=== PATIENT | female | born 1985 | race American Indian/Alaskan Native ===

== ENCOUNTER 2017-11-30 14:42 | Outpatient (CLI) | payer MEDICAID ==
[2017-11-30 15:47] LABS: Bilirubin,Urine NEG (Negative); Blood,Urine NEG (Negative); Color,Urine Red (Yellow); Protein,Urine <15 mg/dL mg/dL (Negative); Urobilinogen,Urine < 2.0 mg/dL (<2.0); WBC,Urine < 1.0 /HPF (0.0-6.0)
[2017-11-30 16:25] LABS: Hematocrit 35.9 % (30.3-42.9); Mean Corpuscular HGB Conc 33 % (30-34); Mean Corpuscular Hemoglobin 29 pg (28-32); Mean Corpuscular Volume 87 fl (79-97); Platelet Count 192 K/mm3 (140-440); Red Blood Count 4.12 M/mm3 (3.65-5.03); Red Cell Distribution Width 16.6 % (13.2-15.2)
[2017-11-30 17:37] LABS: Alanine Aminotransferase 13 units/L (7-56); Uric Acid 5.3 mg/dL (3.5-7.6)
[2017-11-30 17:40] VITALS: BP 130/77
== END 2017-11-30 18:04 | disposition home or self-care (01) ==
LOC: TRG 14:42
PROVIDERS: ATTEND Obstetrics & Gynecology
DX: O16.3 Unspecified maternal hypertension, third trimester (principal); Z3A.39 39 weeks gestation of pregnancy
CPT/HCPCS: 36415; 81001; 82565; 83615; 84450; 84460; 84550; 85027

== ENCOUNTER 2017-12-04 10:49 | Inpatient (IN) | payer MEDICAID ==
[2017-12-04] MEDS ORDERED: PEPCID IV SCH (10:53)
[2017-12-04] MEDS ORDERED: PITOCin/NS 20 UNIT/1000ML DRIP 20 UNITS/1,000 ML BAG IV SCH ×2 (11:00→16:00)
[2017-12-04] MEDS: LACTATED RINGERS 1,000 ML IV SCH ×2 (11:36→12:01)
[2017-12-04 11:52] LABS: Basophils % (Auto) 0.4 % (0.0-1.8); Eosinophils # (Auto) 0.1 K/mm3 (0.0-0.4); Eosinophils % (Auto) 1.2 % (0.0-4.3); Hematocrit 36.7 % (30.3-42.9); Hemoglobin 12.2 gm/dl (10.1-14.3); Lymphocytes # (Auto) 1.7 K/mm3 (1.2-5.4); Lymphocytes % (Auto) 14.9 % (13.4-35.0); Mean Corpuscular HGB Conc 33 % (30-34); Mean Corpuscular Hemoglobin 29 pg (28-32); Mean Corpuscular Volume 87 fl (79-97); Monocytes # (Auto) 0.8 K/mm3 (0.0-0.8); Platelet Count 202 K/mm3 (140-440); Red Blood Count 4.23 M/mm3 (3.65-5.03); Red Cell Distribution Width 16.2 % (13.2-15.2)
[2017-12-04] MEDS ORDERED: BICITRA PO SCH (12:00)
[2017-12-04] MEDS ORDERED: REGLAN IV SCH (12:00)
--- NOTE | 2017-12-04 12:21 | Anesthesia Consultation ---
Anesthesia Consult and Med Hx Date of service: 12/04/17 - Airway Anesthetic Teeth Evaluation: Good ROM Head & Neck: Adequate Mental/Hyoid Distance: Adequate Mallampati Class: Class II Intubation Access Assessment: Probably Good - Pre-Operative Health Status ASA Pre-Surgery Classification: ASA2 Proposed Anesthetic Plan: Epidural, Spinal - Pulmonary Hx Asthma: No COPD: No Hx Pneumonia: No - Cardiovascular System Hx Hypertension: No - Central Nervous System Hx Seizures: No Hx Psychiatric Problems: No - Endocrine Hx Renal Disease: No Hx End Stage Renal Disease: No Hx Hypothyroidism: No Hx Hyperthyroidism: No - Hematic Hx Anemia: No Hx Sickle Cell Disease: No - Other Systems Hx Alcohol Use: No
[2017-12-04] MEDS ORDERED: BENADRYL IV PRN ×2 (12:28→17:38)
[2017-12-04] MEDS ORDERED: NARCAN 0.4 MG/1 ML IV PRN ×2 (12:28→15:10)
[2017-12-04] MEDS ORDERED: PHENERGAN PR PRN (12:28)
[2017-12-04] MEDS ORDERED: PHENERGAN PO PRN (12:28)
[2017-12-04] MEDS ORDERED: DILAUDID IV PRN (12:28)
--- NOTE | 2017-12-04 12:28 | Anesthesia Day of Surgery ---
Anesthesia Day of Surgery - Day of Surgery Patient Examined: Yes Patient H&P Reviewed: Yes Patient is NPO: Yes
[2017-12-04] MEDS ORDERED: TORADOL IV PRN (12:29)
[2017-12-04] MEDS ORDERED: SODIUM CHLORIDE FLUSH SYRINGE 10 ML IV SCH ×2 (13:00→16:00)
--- NOTE | 2017-12-04 13:06 | History and Physical Report ---
History of Present Illness Date of examination: 12/04/17 Date of admission: 12/04/17 10:49 Chief complaint: Repeat C Section History of present illness: Pt is a 32yo BF EDC 12/06/17; EGA 39 5/7 weeks presents for repeat C Section with BTL. She received care at [facility] since 24 weeks and course has been unremarkable except for history of previous C Section x 2. She now presents for a Repeat C Section with a Bilateral Tubal Ligation. records are available and GBS is Negative. Past History Past Medical History: no pertinent history Past Surgical History: section (x2) Social history: no significant social history, - Obstetrical History Expected Date of Delivery: 12/06/17 Actual Gestation: 39 Week(s) 6 Day(s) : 3 Medications and Allergies Allergies Allergy/AdvReac Type Severity Reaction Status Date / Time No Known Allergies Allergy Unverified 11/30/17 14:45 Active Meds: Active Medications Citric Acid/Sodium Citrate (Bicitra) 30 ml PO ONCE JONAH Stop: 12/04/17 23:00 Last Admin: 12/04/17 12:19 Dose: 30 ml Diphenhydramine HCl (Benadryl) 12.5 mg IV Q2H PRN PRN Reason: Itching Famotidine (Pepcid) 20 mg IV ONCE JONAH Stop: 12/04/17 23:00 Last Admin: 12/04/17 12:15 Dose: 20 mg Hydromorphone HCl (Dilaudid) 0.5 mg IV Q4H PRN PRN Reason: breakthrough pain > 7/10 Lactated Ringer's (Lactated Ringers) 1,000 mls @ 2,250 mls/hr IV PREOP JONAH Stop: 12/05/17 12:27 Last Admin: 12/04/17 12:01 Dose: 2,250 mls/hr Oxytocin/Sodium Chloride (Pitocin/Ns 20 Unit/1000ml Drip) 20 units in 1,000 mls @ 0 mls/hr IV TITR JONAH Ketorolac Tromethamine (Toradol) 30 mg IV Q6H PRN PRN Reason: Pain, Moderate (4-6) Stop: 12/09/17 12:28 Metoclopramide HCl (Reglan) 10 mg IV ONCE JONAH Stop: 12/04/17 23:00 Last Admin: 12/04/17 12:17 Dose: 10 mg Naloxone HCl (Narcan 0.4 Mg/1 Ml) 0.2 mg IV Q2MIN PRN PRN Reason: Res Rate </= 8 or 02 SAT < 92% Ondansetron HCl (Zofran) 4 mg IV Q8H PRN PRN Reason: Nausea And Vomiting Promethazine HCl (Phenergan) 25 mg PO Q6H PRN PRN Reason: Nausea And Vomiting Promethazine HCl (Phenergan) 25 mg WV Q6H PRN PRN Reason: Nausea And Vomiting Sodium Chloride (Sodium Chloride Flush Syringe 10 Ml) 10 ml IV PRN JONAH Review of Systems All systems: negative - Vital Signs Vital signs: Vital Signs Temp Resp 98.2 F 20 12/04/17 11:00 12/04/17 11:00 Temp Pulse Resp BP Pulse Ox 98.2 F 20 12/04/17 11:00 12/04/17 11:00 - Physical Exam Breasts: Positive: deferred Cardiovascular: Regular rate Lungs: Positive: Clear to auscultation Abdomen: Positive: normal appearance Genitourinary (Female): Positive: normal external genitalia Uterus: Positive: enlarged Extremities: Positive: normal - Obstetrical FHR: category 1 Uterine Contraction Monitor Mode: External Uterine Contraction Pattern: Absent Results Result Diagrams: 12/05/17 01:59 Abnormal lab results 12/04/17 Range/Units 11:05 WBC 11.6 H (4.5-11.0) K/mm3 RDW 16.2 H (13.2-15.2) % Seg Neutrophils % 76.5 H (40.0-70.0) % Seg Neutrophils # 8.9 H (1.8-7.7) K/mm3 All other labs normal. Assessment and Plan - Patient Problems (1) 39 weeks gestation of Onset Date: 12/04/17 Current Visit: Yes Status: Acute Plan to address problem: A: IUP @ 39 5/7 weeks Previous C Section x 2 Desires permanent sterilization P: Admit for a Repeat C Section with BTL (2) Previous section Onset Date: 12/04/17 Current Visit: Yes Status: Acute (3) Encounter for sterilization Onset Date: 12/04/17 Current Visit: Yes Status: Acute
[2017-12-04] MEDS ORDERED: NEO SYNEPHRINE/NS Syringe(OR USE) IV ONE ×2 (14:03→14:57)
[2017-12-04] MEDS ORDERED: ASTRAMORPH PF 10MG/10ML ONE (14:28)
[2017-12-04] MEDS ORDERED: NACL 0.9% IR ONE (14:29)
[2017-12-04] MEDS ORDERED: WATER FOR IRRIG STERILE IR ONE (14:29)
[2017-12-04] MEDS ORDERED: NACL 0.9% 1000 ML 1,000 ML ONE (14:57)
[2017-12-04] MEDS ORDERED: LANSINOH TP PRN (15:10)
[2017-12-04] MEDS ORDERED: MYLICON PO PRN (15:10)
[2017-12-04] MEDS ORDERED: SENOKOT PO PRN (15:10)
[2017-12-04] MEDS ORDERED: MILK OF MAGNESIA PO PRN (15:10)
[2017-12-04] MEDS ORDERED: TYLENOL PO PRN (15:10)
[2017-12-04] MEDS ORDERED: TUCKS PAD TP PRN (15:10)
--- NOTE | 2017-12-04 15:27 | Operative Report ---
Operative Report Operative Report: Date of procedure: 12/04/2017 Pre-operative diagnosis: 1. Intrauterine at 39-5/7 weeks 2. Previous 2 3. Desires permanent sterilization Post-operative diagnosis: Same Procedure name(s): 1. Repeat low transverse section 2. Bilateral tubal ligation Surgeon: Dario Cardoza MD Compressor Stations Superintendent: None Anesthesia: Spinal anesthesia by ELOISE George EBL: 800 mls Findings: A 3656 g female infant Apgars 8 at 1 minute 9 at 5. Clear amniotic fluid. Normal uterus with lower uterine adhesions. Normal tubes and ovaries bilaterally. Procedure: After the patient was prepped and draped in usual sterile fashion, and after satisfactory level of epidural anesthesia was obtained, the skin knife was used to make a transverse skin incision through the previous skin scars. The incision was excised down to layer of the fascia, which was nicked in the midline and extended laterally using the Bovie cautery. The rectus muscles were dissected off the rectus fascia both superiorly and inferiorly. The rectus bellies in the midline, and the peritoneum was entered under direct visualization. The peritoneal incision was extended superiorly and inferiorly. There was a large amounts of lower uterine adhesions which were taken down using sharp and blunt dissection. A bladder flap was created and the bladder blade was then placed. The uterus was scored in a curvilinear linear fashion, entered in the midline revealing clear amniotic fluid. The infant's head was delivered onto the surgical field with the aid of a vacuum, and the oropharynx and nasopharynx were bulb suctioned. The rest of the infant' s body was delivered, the cord was doubly clamped and cut and the infant was handed to the waiting respiratory team. The placenta was manually removed from the uterus, and the uterus removed from its normal anatomical position. After gentle uterine lavage, the incision was inspected and found to be with a lower cervical extension. It was then closed in 2 layers using 0 Vicryl suture in a running interlocking fashion, the second layer imbricating the first. Attention was then turned to the tubal ligation. First the right fallopian tube was grasped using a Tarik, and after identifying the fimbriated end of the tube, the Filshie clip was applied to the proximal portion of the tube. Next the left fallopian tube was grasped using a Clifford, and after identifying the fimbriated end of the tube, the Filshie clip was applied to the proximal portion of the tube. After good hemostasis was achieved, copious amounts or irrigation was performed, and the gutters were suctioned free of blood and blood clots. The Tisseel sealant was sprayed across the uterine incision. The uterus was then returned to its normal anatomical position, and after excellent hemostasis assured, the peritoneum was re-approximated using 3-0 Vicryl suture in a running interlocking fashion, and then the rectus muscles were re- approximated using 3-0 Vicryl suture in a [id number] configuration. The fascia was then re-approximated using 0 Vicryl suture in running interlocking fashion. The subcutaneous layer was made hemostatic using Bovie cautery, the Tisseel sealant was sprayed across the fascial incision and the skin edges re- approximated using 4-0 Vicryl suture in a sub-cuticular fashion. Patient tolerated the procedure well was transported to recovery in stable condition.
[2017-12-04] MEDS: ZOFRAN IV PRN (15:59)
[2017-12-04] MEDS ORDERED: ANCEF/NS 1 GM/50 ML 1 GM/50 ML BAG IV SCH (16:00)
[2017-12-04] MEDS: D5LR 1,000 ML IV SCH (19:29)
[2017-12-04] MEDS: ceFAZolin 1 GM in NACL 0.9% 20 ML IV SCH (19:30)
[2017-12-05] MEDS: ZOFRAN IV PRN (00:33)
[2017-12-05 02:53] LABS: Hematocrit 36.7 % (30.3-42.9); Hemoglobin 12.1 gm/dl (10.1-14.3)
[2017-12-05] MEDS: ceFAZolin 1 GM in NACL 0.9% 20 ML IV SCH (03:12)
[2017-12-05] MEDS: D5LR 1,000 ML IV SCH (03:14)
[2017-12-05] MEDS ORDERED: BOOSTRIX IM ONE (06:00)
[2017-12-05] MEDS ORDERED: BENADRYL PO PRN (11:00)
[2017-12-05] MEDS: NORCO 5/325 PO PRN ×2 (11:09→16:59)
[2017-12-05] MEDS: FEOSOL PO SCH (11:10)
[2017-12-05] MEDS: PRENATAL VITAMIN PO SCH (11:10)
--- NOTE | 2017-12-05 14:11 | Progress Note ---
Assessment and Plan - Patient Problems (1) Status post Onset Date: 12/05/17 Current Visit: Yes Status: Resolved Plan to address problem: A: S/P Repeat C Section with BTL - POD #1 Doing well P: Continue RPOC Anticipate discharge in 24-48hrs Subjective - Subjective Date of service: 12/05/17 Principal diagnosis: s/p Repeat C Section with BTL - POD #1 Interval history: Pt is feeling well. Bleeding improved. Tolerating a liquid diet without nausea or vomiting. Patient reports: appetite normal, voiding normally, pain well controlled, ambulating normally, no flatus : doing well, bottle feeding Objective - Vital Signs Latest vital signs: Vital Signs Temp Pulse Resp BP BP Pulse Ox 12/05/17 13:23 98.7 F 91 H 20 114/66 98 12/05/17 09:10 98.9 F 92 H 18 119/60 99 12/05/17 05:00 98.7 F 66 18 114/78 12/05/17 04:00 98.6 F 78 18 116/69 12/05/17 00:30 98.6 F 76 16 112/64 12/04/17 20:00 98.6 F 69 18 112/64 12/04/17 17:00 97.7 F 71 20 109/50 95 12/04/17 16:17 76 31 H 114/38 99 12/04/17 16:10 76 31 H 114/38 99 12/04/17 16:09 98.5 F 12/04/17 16:05 70 28 H 122/36 100 12/04/17 16:00 80 23 114/36 97 12/04/17 15:56 77 24 122/31 96 12/04/17 15:50 95 H 20 110/59 99 12/04/17 15:45 70 26 H 110/59 96 12/04/17 15:40 74 28 H 97 12/04/17 15:35 71 31 H 117/65 98 12/04/17 15:30 76 26 H 108/62 98 12/04/17 15:25 75 29 H 115/56 99 12/04/17 15:20 27 H 111/35 97 12/04/17 15:18 97.8 F 79 26 H 113/35 98 Intake and Output 12/04/17 12/05/17 12/05/17 22:59 06:59 14:59 Intake Total 2250 1568.75 480 Output Total 598 395 6972 Balance 1300 668.75 -620 Intake: IV 2250 968.75 D5lr 1,000 ml @ 125 mls/ 968.75 hr IV DIRECT JONAH Rx#: [id number] Oral 480 Intake, Free Water 600 Output: Urine 162 607 6553 Indwelling Catheter 300 900 Void 1100 Emesis 50 Other: Total, Intake Amount 120 Total, Output Amount 350 900 500 Estimated Blood Loss 800 - Exam Breasts: Present: deferred Cardiovascular: Present: Regular rate Lungs: Present: Clear to auscultation Abdomen: Present: normal appearance, soft Uterus: Present: normal, firm, fundal height below umbilicus Extremities: Present: normal Incision: Present: normal, dry, intact, dressed - Labs Labs: Laboratory Tests 12/04/17 12/04/17 12/05/17 11:05 11:05 01:59 WBC 11.6 H RBC 4.23 Hgb 12.2 12.1 Hct 36.7 36.7 MCV 87 MCH 29 MCHC 33 RDW 16.2 H Plt Count 202 Lymph % (Auto) 14.9 [place] % (Auto) 7.0 Eos % (Auto) 1.2 Baso % (Auto) 0.4 Lymph # 1.7 [place] # 0.8 Eos # 0.1 Baso # 0.0 Seg Neutrophils % 76.5 H Seg Neutrophils # 8.9 H Blood Type B POSITIVE Antibody Screen Negative
[2017-12-05] MEDS ORDERED: M-M-R II VACCINE SUB-Q ONE (15:12)
[2017-12-05] MEDS: MOTRIN PO PRN (16:59)
[2017-12-05] MEDS: PERCOCET 5/325 PO PRN (23:52)
[2017-12-06] MEDS: PERCOCET 5/325 PO PRN ×2 (06:32→21:30)
--- NOTE | 2017-12-06 08:48 | Progress Note ---
Assessment and Plan - Patient Problems (1) 39 weeks gestation of Onset Date: 12/04/17 Current Visit: Yes Status: Acute (2) Previous section Onset Date: 12/04/17 Current Visit: Yes Status: Acute (3) Encounter for sterilization Onset Date: 12/04/17 Current Visit: Yes Status: Acute (4) Status post Onset Date: 12/05/17 Current Visit: Yes Status: Resolved Plan to address problem: A: S/P Repeat C Section with BTL - POD #2 Doing well P: May go home tomorrow. Subjective - Subjective Date of service: 12/06/17 Principal diagnosis: s/p Repeat C Section with BTL - POD #2 Interval history: Pt is feeling well without complaints, Tolerating a reg diet without nausea or vomiting, ambulating and voiding without difficulty. Patient reports: appetite normal, voiding normally, pain well controlled, flatus , ambulating normally, no dizzy ambulation, no nauseated [place]: doing well, nursing well, bottle feeding Objective - Vital Signs Latest vital signs: Vital Signs Temp Pulse Resp BP Pulse Ox 12/05/17 23:20 98.6 F 84 20 116/76 12/05/17 16:17 99 F 96 H 18 116/71 98 12/05/17 13:23 98.7 F 91 H 20 114/66 98 12/05/17 09:10 98.9 F 92 H 18 119/60 99 Intake and Output 12/05/17 12/06/17 12/06/17 22:59 06:59 14:59 Intake Total 420 360 Balance 420 360 Intake: Oral 240 Intake, Free Water 180 360 Other: Total, Intake Amount 240 # Voids Void 1 1 - Exam Lungs: Present: Clear to auscultation Abdomen: Present: normal appearance, soft Uterus: Present: normal, firm, fundal height below umbilicus Extremities: Present: normal Incision: Present: normal, dry, intact, dressed
--- NOTE | 2017-12-06 08:49 | Discharge Summary ---
Providers - Providers Date of Admission: 12/04/17 10:49 Date of discharge: 12/07/17 Attending physician: GLENN NEWTON Primary care physician: GLENN NEWTON Hospitalization Reason for admission: section, IUP at term Delivery: Procedure: section, bilateral tubal ligation, repeat low transverse Episiotomy: none Laceration: none Incision: normal, dry, intact Other procedures: tubal ligation complications: none Discharge diagnosis: IUP at term delivered [place] baby: female Hospital course: Pt is a 32yo BF EDC 12/06/17; EGA 39 5/7 weeks who presented for repeat C Section with BTL. She tolerated the procedure well, and by POD #2 she was tolerating a reg diet without nausea or vomiting, ambulating and voiding without difficulty. She will therefore be discharged to home on POD #3 in stable condition. Condition at discharge: Good Disposition: DC-01 TO HOME OR SELFCARE - Discharge Diagnoses (1) 39 weeks gestation of Status: Resolved (2) Previous section Status: Resolved (3) Encounter for sterilization Status: Resolved (4) Status post Status: Resolved Plan - Discharge Medications Prescriptions: Ferrous Sulfate [Feosol 325 MG tab] 325 mg PO BID #60 tablet HYDROcodone/APAP 5-325 [[place] 5-325 mg TAB] 1 each PO Q4H PRN #30 tablet PRN Reason: Pain, Moderate (4-6) Ibuprofen [Motrin 800 MG tab] 800 mg PO Q6H PRN #30 tablet PRN Reason: Pain, Mild (1-3) Vit-Fe Fumar-FA [ Vitamin] 1 each PO QDAY #30 tablet - Provider Discharge Summary Activity: routine, no sex for 6 weeks, no heavy lifting 4 weeks, no strenuous exercise Diet: routine Instructions: routine Additional instructions: [] Smoking cessation referral if applicable(refer to patient education folder for contact #) [] Refer to [facility] Booklet Call your doctor immediately for: * Fever > 100.5 * Heavy vaginal bleeding ( >1 pad per hour) * Severe persistent headache * Shortness of breath * Reddened, hot, painful area to leg or breast * Drainage or odor from incision. * Keep incision clean and dry at all times and follow doctor's instructions regarding bathing/showering - Follow up plan Follow up: GLENN NEWTON MD [Primary Care Provider] - 14 Days
[2017-12-06] MEDS: NORCO 5/325 PO PRN ×2 (11:30→16:00)
[2017-12-06] MEDS: FEOSOL PO SCH (11:30)
[2017-12-06] MEDS: PRENATAL VITAMIN PO SCH (11:30)
[2017-12-07] MEDS: MOTRIN PO PRN ×3 (02:20→18:46)
[2017-12-07] MEDS: NORCO 5/325 PO PRN (02:20)
[2017-12-07] MEDS: PRENATAL VITAMIN PO SCH (11:45)
[2017-12-07] MEDS: FEOSOL PO SCH (11:45)
[2017-12-07] MEDS: PERCOCET 5/325 PO PRN ×2 (11:45→18:44)
[2017-12-07 12:08] VITALS: BP 115/67
== END 2017-12-07 19:05 | disposition home or self-care (01) | DRG 766 ==
LOC: APU 10:49 → OB 16:37
PROVIDERS: ADMIT Obstetrics & Gynecology; ATTEND Obstetrics & Gynecology
PROC: 10D00Z1 Extraction of Products of Conception, Low, Open Approach (ICD-10-PCS; principal; 2017-12-04)
PROC: 0UL70CZ Occlusion of Bilateral Fallopian Tubes with Extraluminal Device, Open Approach (ICD-10-PCS; 2017-12-04)
PROC: 3E0234Z Introduction of Serum, Toxoid and Vaccine into Muscle, Percutaneous Approach (ICD-10-PCS; 2017-12-05)
DX: O34.211 Maternal care for low transverse scar from previous cesarean delivery (principal); Z3A.39 39 weeks gestation of pregnancy; Z37.0 Single live birth; Z30.2 Encounter for sterilization; Z23 Encounter for immunization
CPT/HCPCS: 36415; 85014; 85018; 85025; 86706; 86850; 86900; 86901; 99211; C9250; G0463; J0690; J1200; J1885; J2274; J2370; J2405; J2590; J2765; J7030; J7120; J7121